=== PATIENT | male | born 1955 | race Asian ===

== ENCOUNTER → 2018-12-20 13:27 | Outpatient (CLI) | payer OTHER, SELFPAY ==
--- NOTE | 2018-12-20 | DI.US.S_ITS ---
PROCEDURE: US ABDOMEN COMPLETE INDICATIONS: ABNORMAL LIVER ENZYMES TECHNIQUE: Real-time scanning was performed of the abdominal and retroperitoneal organs, with image documentation. COMPARISON: None. FINDINGS: Liver: The liver demonstrates diffusely increased echotexture without focal abnormalities consistent with chronic hepatocellular disease/hepatic steatosis. Gallbladder: Gallbladder is normal in sonographic appearance without gallstones, gallbladder wall thickening, pericholecystic fluid, or abnormal sonographic Lima's. Biliary ducts: Intrahepatic bile ducts are non-dilated. Extrahepatic bile duct caliber measures 3 mm. Normal is 6-7 mm or less in diameter, or 10 mm or less post-cholecystectomy. Pancreas: Visualized portions of the pancreas are sonographically normal. Spleen: Spleen is normal in size and homogeneous in echotexture. Kidneys: Kidneys are normal in size and echotexture. Right kidney measures 11.2 cm long; left kidney measures 11.4 cm long. No hydronephrosis or nephrolithiasis. No solid masses. Aorta: Visualized aorta is normal in caliber at less than 3 cm. Iliacs: Proximal common iliac arteries are not well visualized secondary to bowel gas. IVC: Intrahepatic inferior vena cava is patent. Miscellaneous: No free abdominal fluid. IMPRESSION: The liver demonstrates diffusely increased echotexture without focal abnormalities consistent with chronic hepatocellular disease/hepatic steatosis. This may explain patient's abnormal liver function tests. Dictated by: Hung Werner M.D. on 12/20/2018 at 15:03 Approved by: Hung Werner M.D. on 12/20/2018 at 15:05
== END ==
PROVIDERS: Visit Provider Internal Medicine
DX: R74.8 Abnormal levels of other serum enzymes (principal)
CPT/HCPCS: 76700

== ENCOUNTER 2022-12-07 22:59 | Emergency (ER) | payer MEDICARE, OTHER, SELFPAY ==
[2022-12-07 23:05] VITALS: BP 173/84; PULSE 68; RESP 18; TEMP 36.4; O2SAT 97; BMI 29.2
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
[2022-12-08] MEDS: HYDROCODONE/ACET 5/325 TABLET 1 TAB PO (04:12)
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
[2022-12-08] MEDS: BACITRACIN OINT 0.9 GM PCKT 1 APPLIC TOP (04:43)
[2022-12-08 05:13] LABS: COVID19 -Nasal RAPID Negative (Negative)
[2022-12-08 06:03] VITALS: BP 134/78; PULSE 78; RESP 18; TEMP 36.7; O2SAT 98
== END 2022-12-08 06:04 | disposition home or self-care (01) ==
PROVIDERS: Emergency Provider Emergency Medicine
DX: T22.321A Burn of third degree of right elbow, initial encounter (principal); T23.321A Burn of third degree of single right finger (nail) except thumb, initial encounter; X03.3XXA Fall due to controlled fire, not in building or structure, initial encounter; Y93.89 Activity, other specified; Z11.52 Encounter for screening for COVID-19
CPT/HCPCS: 87635; 99283; 99284; C9803

== ENCOUNTER → 2023-03-11 11:24 | Outpatient (CLI) | payer MEDICARE, OTHER, SELFPAY ==
--- NOTE | 2023-03-11 | DI.RAD.S_ITS ---
PROCEDURE: XR LUMBAR SPINE 2-3V INDICATIONS: LOW BACK PAIN TECHNIQUE: 3 views of the lumbar spine were acquired. COMPARISON: None. FINDINGS: Bones: Bones are osteopenic. 5 [id number] vertebrae are present. There is unremarkable bony alignment. No definite vertebral body compression fracture is seen.. Degenerative changes at L5-S1 are noted. Soft tissues: Overlying bowel gas pattern is normal. IMPRESSION: Osteopenia, DJD of the lower lumbar spine. Dictated by: Ezequiel Calderón M.D. on 03/11/2023 at 17:51 Approved by: Ezequiel Calderón M.D. on 03/11/2023 at 17:53
--- NOTE | 2023-03-11 | DI.RAD.S_ITS ---
PROCEDURE: XR HIP W PEL IF DONE RT 2V INDICATIONS: HIP PAIN TECHNIQUE: AP pelvis with lateral view(s) of the right hip(s). COMPARISON: None. FINDINGS: Bones: No fractures or dislocations. Moderate acetabular and femoral head spurring. Slightly asymmetric left hip joint space loss. Pelvic ring appears intact. No suspicious bony lesions. Soft tissues: The visualized bowel gas pattern is normal. No suspicious soft tissue calcifications. IMPRESSION: Mild asymmetric right hip degenerative changes. Dictated by: Marlin Ness M.D. on 03/11/2023 at 17:27 Approved by: Marlin Ness M.D. on 03/11/2023 at 17:28
== END ==
PROVIDERS: Referring Provider Student in an Organized Health Care Education/Training Program; Visit Provider Student in an Organized Health Care Education/Training Program
DX: M47.817 Spondylosis without myelopathy or radiculopathy, lumbosacral region (principal); M85.88 Other specified disorders of bone density and structure, other site; M25.551 Pain in right hip; G89.29 Other chronic pain
CPT/HCPCS: 72020; 72100; 73502